=== PATIENT | male | born 1990 | race Native Hawaiian/Other Pacific Islander ===

== ENCOUNTER 2018-12-06 23:34 | Emergency (ER) | payer BC, OTHER ==
[~2018-12-06] VITALS: Ht 182.9 cm; Wt 104.3 kg
--- NOTE | 2018-12-07 00:14 | NUR ---
ER MD at bedside for patient evaluation
--- NOTE | 2018-12-07 00:24 | NUR ---
Patient discharged to home in stable conditon. Written and verbal after care instructions given. Patient verbalizes understanding of instructions. Ambulated from ER with stable gait. All belongings with patient. VSS
[2018-12-07 00:26] VITALS: BP 141/87
== END 2018-12-07 00:27 | disposition home or self-care (01) ==
LOC: ER 23:36
DX: S00.03XA Contusion of scalp, initial encounter (principal); J45.909 Unspecified asthma, uncomplicated; W21.05XA Struck by basketball, initial encounter; Y93.67 Activity, basketball; Y92.89 Other specified places as the place of occurrence of the external cause; Y99.8 Other external cause status
CPT/HCPCS: A4663